=== PATIENT | male | born 1975 | race African-American/Black ===

== ENCOUNTER 2018-08-28 16:36 | Emergency (ER) | payer OTHER, SELFPAY ==
[~2018-08-28] VITALS: Ht 182.9 cm; Wt 100.0 kg
[~2018-08-28 16:36] MED LIST: NOCURR
[2018-08-28] MEDS ORDERED: TETRACAINE HCL/PF 0.5% 4 ML OPHTHALMIC SOLUTION OU ONE (17:00)
[2018-08-28 18:48] VITALS: BP 125/86
== END 2018-08-28 18:52 | disposition home or self-care (01) ==
LOC: EMS 16:37
DX: H10.213 Acute toxic conjunctivitis, bilateral (principal); H57.9 Unspecified disorder of eye and adnexa
CPT/HCPCS: 99283